=== PATIENT | male | born 1970 | race Caucasian/White ===

== ENCOUNTER 2021-11-27 09:30 | Day surgery (SDC) | payer BC, SELFPAY ==
[2021-11-27] VITALS (21 sets, daily range): BP systolic 133–164; BP diastolic 80–128; PULSE 57–91; RESP 14–20; TEMP 36.1–36.8; O2SAT 94–98; BMI 31.5
--- NOTE | 2021-11-27 10:09 | ED.ABDPAIN ---
HPI - Abdominal Pain General Time Seen by Provider: 10:09 Date Seen: 11/27/21 Chief Complaint: Abdominal Pain Stated Complaint: severe abdominal pain Time Seen by Provider: 11/27/21 10:09 Source: patient and RN notes reviewed History of Present Illness HPI narrative: Patient is a very pleasant 51-year-old male coming in with abdominal pain that radiates up into the right chest that awoke him at about 3:40 a.m. this morning. He has never had anything like this. He feels chilled but has not had fevers. [place] fine yesterday, went to bed without any symptoms. He had some coffee this morning and has not changed symptoms. He has not eaten in maybe endorses that his appetite maybe suppressed. He had a little diarrhea yesterday which she states would not be atypical for the heat in working outside that he experiences. He has never had any abdominal surgery. He states he has only had back surgery and a plate put in his ankle. As for family history, he is unaware if there is anybody with kidney stones but thinks there could be, is not aware of anybody with gallbladder issues or anybody that had their appendix out. No nausea or vomiting. No change in urination. No abnormal bowel pattern today. The chest symptoms have been there with the abdominal symptoms and he feels pain radiating up from the abdomen into the right chest area. He does note that his girlfriend was just in the hospital about 2 weeks ago for pneumonia. He does not endorse any cough seen, no respiratory symptoms. Did review with him that we certainly will consider that in our workup. We will look at cardiac possibilities as well. He has no prior cardiac history. He reports he quit smoking 1 year ago. When I asked patient if he drinks alcohol he does say yes. When asked how much he states enough. MD elicited complaint: abdominal pain Pertinent past history: none Onset (ago): hour(s) Pain Consistency: constant Location: epigastric and RUQ Severity: moderate Related Data Allergies Allergy/AdvReac Type Severity Reaction Status Date / Time clavulanic acid Allergy Verified 11/27/21 09:36 [From Augmentin] Review of Systems Status of ROS Reports: 10 or more systems reviewed and unremarkable except as noted in History and below PFSH PFSH Social History Smoking Status: Never smoker How often do you have a drink containing alcohol: never How often do you have six or more drinks on one occasion: Never AUDIT-C Alcohol total score: 0 Non-prescribed substance use: denies use Exam Const: Vital Signs, click to edit/add: Vital Signs - 24 hr 11/27/21 09:36 11/27/21 09:54 11/27/21 11:31 Temperature 98.2 F 97 F L Pulse Rate [Pulse Oximeter] 91 63 57 L Respiratory Rate 20 18 Blood Pressure [Le ft Upper Arm] 160/92 H 163/102 H Pulse Oximetry 97 97 97 Oxygen Delivery Me thod Room Air Room Air Room Air 11/27/21 13:15 11/27/21 13:30 11/27/21 14:00 Temperature Pulse Rate [Pulse Oximeter] 70 79 67 Respiratory Rate Blood Pressure [Le ft Upper Arm] 157/93 H 164/94 H 159/109 H Pulse Oximetry 96 96 95 Oxygen Delivery Me thod Room Air Room Air Room Air 11/27/21 14:15 11/27/21 14:30 11/27/21 15:00 Temperature Pulse Rate [Pulse Oximeter] 71 65 Respiratory Rate Blood Pressure [Le ft Upper Arm] 156/93 H 148/101 H 164/128 H Pulse Oximetry 95 95 Oxygen Delivery Me thod Room Air Room Air 11/27/21 15:25 Temperature Pulse Rate [Pulse Oximeter] 66 Respiratory Rate Blood Pressure [Le ft Upper Arm] 155/88 H Pulse Oximetry 96 Oxygen Delivery Me thod Room Air Documenting provider has reviewed patient's vital signs: yes Common normals: no apparent distress, oriented x3, no limitations, healthy appearing and alert General appearance: cooperative and comfortable Nutritional appearance: overweight HENMT: Common normals: normocephalic, head/scalp atraumatic, hearing grossly normal bilaterally, external ears normal, external nose normal, nasal mucous membranes and turbinates normal, moist oral mucous membranes, oropharynx normal and dentition normal Head and scalp: normocephalic and atraumatic Nose: external nose normal and nasal mucous membranes and turbinates normal External ear: external ears normal Eye: Common normals: PERRL, EOMs intact bilaterally, conjunctivae normal and no scleral icterus Conjunctiva: conjunctiva(e) normal Pupil: PERRL Neck & C-Spine: Common normals: full ROM, no lymphadenopathy, supple, no meningeal signs, no JVD and thyroid normal Thyroid: thyroid normal Chest: Common normals: inspection of chest normal and palpation of chest normal Resp: Common normals: normal respiratory effort, no retractions, no use of accessory muscles and clear to auscultation bilaterally Auscultation: clear to auscultation bilaterally Cardio: Common normals: no JVD, regular rate, regular rhythm, S1 normal heart sound, S2 normal heart sound, no gallops, no clicks, no murmurs and no rub Rate: regular rate Rhythm: regular rhythm Heart sounds: S1 normal and S2 normal GI: Common normals: Normal to inspection, nondistended, normoactive bowel sounds present, soft to palpation, no hepatosplenomegaly and no masses Palpation: soft and no hepatosplenomegaly Other: Tender mostly in the epigastric area but does generalized to mild right upper quadrant tenderness. Slight guarding in the epigastric area but not elsewhere. Certainly no rebound symptoms. : Common normals: no CVA tenderness Bladder/kidney exam: no CVA tenderness Back & Pelvis: Common normals: no CVA tenderness Extremity: Common normals: normal to inspection, full ROM, normal capillary refill, no joint enlargement, no clubbing, cyanosis or edema, no calf tenderness and no pedal edema Neuro: Common normals: oriented x3 Sensorium/orientation: alert Meningeal signs: no meningeal signs Course Course Hospital Course: We will place an IV. He states he does not need anything for pain at this time. Will proceed with a full complement of labs, portable chest x-ray, right upper quadrant abdominal ultrasound. He may need CT imaging as well. Primary in the differential for me is pancreatitis with her without gallbladder disease. There could be other intra-abdominal pathology and will consider this as our workup goes along. This could be atypical cardiac manifestations, atypical pulmonary disease presentation. Patient this time is hemodynamically stable and comfortable. He has no nausea. He will let me know if his symptoms are changing. He will be on cardiac monitoring and pulse oximetry at this time as we have not ruled out cardiac possibilities as causative etiology. However with that said, believe this is most likely intra-abdominal pathology. Reevaluation(s) Reevaluation #1: Reviewed the findings of appendicitis with patient. I will be contacting our general surgeon. Time: 13:00 Consultations Consultation #1: Have spoken with her surgeon Dr. Geronimo regarding the acute appendicitis. She will be coming to see him and hopefully he will be going to the OR in a relatively short time frame. Time: 13:05 Vital Signs Vital signs: Initial Vital Signs Temperature Source Temporal Artery Scan 11/27/21 09:36 Pulse Rate 91 11/27/21 09:36 Pulse Rhythm 11/27/21 09:36 Respiratory Rate 20 11/27/21 09:36 Blood Pressure 160/92 H 11/27/21 09:36 Blood Pressure Mean 114 11/27/21 09:36 Blood Pressure Position Supine 11/27/21 09:36 Pulse Oximetry 97 11/27/21 09:36 Oxygen Delivery Method 11/27/21 09:36 Vital Signs Pulse Rate 91 11/27/21 09:36 Respiratory Rate 20 11/27/21 09:36 Blood Pressure 160/92 H 11/27/21 09:36 Pulse Oximetry 97 11/27/21 09:36 Oxygen Delivery Method 11/27/21 09:36 Temperature 97 F L 11/27/21 11:31 Pulse Rate 66 11/27/21 15:25 Respiratory Rate 18 11/27/21 11:31 Blood Pressure 155/88 H 11/27/21 15:25 Pulse Oximetry 96 11/27/21 15:25 Oxygen Delivery Method 11/27/21 15:25 MDM - Abdominal Pain Lab Data Attestation: I reviewed the patient's lab results. Labs: Lab Results 11/27/21 11/27/21 11/27/21 Range/Units 10:16 10:20 10:20 WBC 10.21 (4.50-11.00) K/uL RBC 5.09 (4.30-5.90) m/uL Hgb 15.6 (13.5-17.5) gm/dL Hct 46.4 (37.0-53.0) % MCV 91 (80-100) fL MCH 31 (26-34) pg MCHC 34 (32-36) gm/dL RDW Coeff of Beatriz 12.6 (11.5-15.5) % Plt Count 208 (140-440) K/uL Neut % (Auto) 87.9 H (42.0-72.0) % Lymph % (Auto) 6.7 L (20-44) % [place] % (Auto) 5.0 (0.0-11.0) % Eos % (Auto) 0.1 (0.0-7.0) % Baso % (Auto) 0.2 (0.0-3.0) % Neut # (Auto) 9.00 H (1.7-7.0) K/uL Lymph # (Auto) 0.70 L (0.90-2.90) K/uL [place] # (Auto) 0.50 (0.00-0.90) K/UL Eos # (Auto) 0.01 (0.00-0.50) K/uL Baso # (Auto) 0.02 (0.00-0.30) K/uL Abs Immat Gran (auto) 0.01 (0.00-0.30) K/uL Sodium 136 (135-149) mmol/L Potassium 4.5 (3.6-5.1) mmol/L Chloride 102 (96-114) mmol/L Carbon Dioxide 29 (20-32) mmol/L BUN 14 (7-30) mg/dL Creatinine 0.9 (0.5-1.5) mg/dL Estimated Creat Clear 96.01 Estimated GFR 103 ml/min Glucose 125 H (60-115) mg/dL Lactate (0.5-1.9) mmol/L Calcium 9.1 (8.4-10.6) mg/dL Total Bilirubin 0.7 (0.1-1.5) mg/dL AST 25 (12-35) U/L ALT 25 (4-50) U/L Alkaline Phosphatase 91 (40-150) U/L Troponin I < 0.01 L (0.01-0.04) ng/mL C-Reactive Protein 0.6 (0.5-1.0) mg/dL Total Protein 7.4 (6.0-8.3) g/dL Albumin 4.4 (3.3-5.0) g/dL Lipase 49 (23-300) U/L Urine Color (Yellow) Urine Appearance (Clear) Urine pH (5.0-8.5) Ur Specific [place] (1.000-1.030) Urine Protein (Negative) Urine Glucose (UA) (Negative) Urine Ketones (Negative) Urine Blood (Negative) Urine Nitrite (Negative) Urine Bilirubin (Negative) Urine Urobilinogen (0.2-1.0) Ur Leukocyte Esterase (Negative) Urine RBC (0-2) Urine WBC (0-5) Ur Squamous Epith Cells (None-Few) Urine Bacteria (None) Ethyl Alcohol < 0.01 L (0.01-0.03) % SARS-CoV-2 (PCR) Negative SARS-CoV-2 (Negative) 11/27/21 11/27/21 Range/Units 10:20 11:41 WBC (4.50-11.00) K/uL RBC (4.30-5.90) m/uL Hgb (13.5-17.5) gm/dL Hct (37.0-53.0) % MCV (80-100) fL MCH (26-34) pg MCHC (32-36) gm/dL RDW Coeff of Beatriz (11.5-15.5) % Plt Count (140-440) K/uL Neut % (Auto) (42.0-72.0) % Lymph % (Auto) (20-44) % [place] % (Auto) (0.0-11.0) % Eos % (Auto) (0.0-7.0) % Baso % (Auto) (0.0-3.0) % Neut # (Auto) (1.7-7.0) K/uL Lymph # (Auto) (0.90-2.90) K/uL [place] # (Auto) (0.00-0.90) K/UL Eos # (Auto) (0.00-0.50) K/uL Baso # (Auto) (0.00-0.30) K/uL Abs Immat Gran (auto) (0.00-0.30) K/uL Sodium (135-149) mmol/L Potassium (3.6-5.1) mmol/L Chloride (96-114) mmol/L Carbon Dioxide (20-32) mmol/L BUN (7-30) mg/dL Creatinine (0.5-1.5) mg/dL Estimated Creat Clear Estimated GFR ml/min Glucose (60-115) mg/dL Lactate 0.8 (0.5-1.9) mmol/L Calcium (8.4-10.6) mg/dL Total Bilirubin (0.1-1.5) mg/dL AST (12-35) U/L ALT (4-50) U/L Alkaline Phosphatase (40-150) U/L Troponin I (0.01-0.04) ng/mL C-Reactive Protein (0.5-1.0) mg/dL Total Protein (6.0-8.3) g/dL Albumin (3.3-5.0) g/dL Lipase (23-300) U/L Urine Color Yellow (Yellow) Urine Appearance Clear (Clear) Urine pH 8.5 (5.0-8.5) Ur Specific [place] 1.020 (1.000-1.030) Urine Protein Negative (Negative) Urine Glucose (UA) Negative (Negative) Urine Ketones Negative (Negative) Urine Blood Negative (Negative) Urine Nitrite Negative (Negative) Urine Bilirubin Negative (Negative) Urine Urobilinogen 0.2 (0.2-1.0) Ur Leukocyte Esterase Negative (Negative) Urine RBC 0-2 (0-2) Urine WBC 0-2 (0-5) Ur Squamous Epith Cells Few (None-Few) Urine Bacteria None (None) Ethyl Alcohol (0.01-0.03) % SARS-CoV-2 (PCR) (Negative) Imaging Data US - abdomen: Attestation: I have reviewed the pertinent imaging results. Radiologist's impression: Patient: JEFFERSON MARQUEZ Facility:?[facility] Patient ID:?[id number] Site Patient ID:?[id number] Site :?[id number] Study:?US Abdomen RUQ-11/27/2021 11:15:10 AM Ordering Physician:Marilu Patterson Final Report: Indication: Right upper quadrant pain. Technique: Sonography of the abdomen was performed limited to the structures discussed below Comparison: There are no prior studies for comparison Findings: The liver is normal in size and configuration. No focal mass. No biliary ductal dilatation. No perihepatic fluid collections. The common duct measures 5 millimeters which is normal. The gallbladder shows no evidence of calculus or sludge. There is a sonographic Buchanan`s sign. There is no pericholecystic fluid. Wall thickness is mildly increased at 4 millimeters. Generally, greater than 3 millimeters is considered abnormal. The pancreas was poorly seen due to overlying bowel gas. Aorta was mildly dilated at 3 centimeters. The IVC appeared normal. The right kidney is normal in size measuring 12.1 x 6.3 x 7.5 centimeters. This contains a cyst measuring 4.7 x 3.5 x 4.4 centimeters. Impression: 1. There is a sonographic Buchanan sign and mild gallbladder wall thickening but no biliary ductal dilatation, stones, sludge or abnormal pericholecystic fluid collection. Therefore the findings do not meet ultrasound criteria for acute cholecystitis. 2. Right renal cyst. 3. Mildly dilated aorta at 3 centimeters Chest x-ray: Attestation: I have reviewed the pertinent imaging results. Radiologist's impression: Patient: JEFFERSON MARQUEZ Facility:?[facility] Patient ID:?[id number] Site Patient ID:?[id number] Site :?[id number] Study:?XRay Chest Portable 1 View-11/27/2021 10:53:50 AM Ordering Physician:Marilu Patterson Final Report: INDICATION: Chest discomfort COMPARISON: None TECHNIQUE: Single-view portable study November 27, 2021 at 10:43 a.m. FINDINGS: TUBES AND LINES: None. HEART AND MEDIASTINUM: The heart size is normal. The mediastinal contour appears normal for patient age. LUNGS AND PLEURAL SPACES: The lungs appear normal.The pleural spaces are unremarkable. OSSEOUS STRUCTURES: Age-appropriate appearance. No acute focal finding. IMPRESSION: No evidence of active pulmonary disease. Dictated by Amanuel Fernandez MD @ 11/27/2021 11:05:33 AM (Electronic Signature) CT scan - abdomen: Attestation: I have reviewed the pertinent imaging results. Radiologist's impression: [facility] Facility:?[facility] Patient ID:?[id number] Site Patient ID:?[id number]. Site :?[id number] Study:?CT Abdomen/Pelvis 100cc isovue 370-11/27/2021 12:35:55 PM Ordering Physician:Marilu Patterson Final Report: INDICATION: EPIGASTRIC AND RUQ PAIN TECHNIQUE: CT abdomen and pelvis with 100CC ISOVUE 370 IV contrast. COMPARISON: None. FINDINGS: The liver is normal in size, shape and attenuation. Gallbladder and biliary tree are normal. The spleen, adrenal glands and pancreas are within normal limits. Right midpole renal cyst measuring 5.5 cm. Punctate right intrarenal nephrolithiasis. No hydronephrosis. No bladder wall thickening. No evidence of bowel obstruction. The appendix is enlarged measuring 1.2 cm with some adjacent stranding. The appendix is predominantly fluid-filled with tiny foci of air within the mid lumen. No evidence of periappendiceal fluid collection to suggest abscess. No significant free fluid and no free air. Mild atherosclerosis of the abdominal aorta which is of normal caliber. Pelvic organs are unremarkable. The lower chest is unremarkable. Mild degenerative changes of the lower spine. IMPRESSION: Findings compatible with acute appendicitis. No evidence of perforation or periappendiceal fluid collection. Please note that all CT scans at this facility use dose modulation, iterative reconstruction, and/or weight-based dosing when appropriate to reduce radiation dose to as low as reasonably achievable. Dictated by Jose R Gusman MD @ 11/27/2021 12:55:11 PM (Electronic Signature) ECG Data Attestation: I personally reviewed and interpreted this ECG as follows: (Sinus bradycardia, 59 beats per minute, right bundle branch block.) ECG interpretation date: 11/27/21 ECG interpretation time: 10:27 Prior ECG tracings: not available for review Critical Care Time Critical Care Time Critical Care Time: No Discharge Plan Discharge Clinical Impression: Acute appendicitis Patient Disposition: Admitted As Inpatient Condition: Stable
--- NOTE | 2021-11-27 10:15 | CRLHL7_ITS ---
For Patients: As a result of the Century Cures Act, medical imaging exams and procedure reports are released immediately into your electronic medical record. You may view this report before your referring provider. If you have questions, please contact your health care provider. Indication: Right upper quadrant pain. Technique: Sonography of the abdomen was performed limited to the structures discussed below Comparison: There are no prior studies for comparison Findings: The liver is normal in size and configuration. No focal mass. No biliary ductal dilatation. No perihepatic fluid collections. The common duct measures 5 millimeters which is normal. The gallbladder shows no evidence of calculus or sludge. There is a sonographic Buchanan`s sign. There is no pericholecystic fluid. Wall thickness is mildly increased at 4 millimeters. Generally, greater than 3 millimeters is considered abnormal. The pancreas was poorly seen due to overlying bowel gas. Aorta was mildly dilated at 3 centimeters. The IVC appeared normal. The right kidney is normal in size measuring 12.1 x 6.3 x 7.5 centimeters. This contains a cyst measuring 4.7 x 3.5 x 4.4 centimeters. Impression: 1. There is a sonographic Buchanan sign and mild gallbladder wall thickening but no biliary ductal dilatation, stones, sludge or abnormal pericholecystic fluid collection. Therefore the findings do not meet ultrasound criteria for acute cholecystitis. 2. Right renal cyst. 3. Mildly dilated aorta at 3 centimeters Dictated by Amanuel Fernandez MD @ 11/27/2021 11:33:09 AM (Electronically Signed)
--- NOTE | 2021-11-27 10:17 | CRLHL7_ITS ---
For Patients: As a result of the Century Cures Act, medical imaging exams and procedure reports are released immediately into your electronic medical record. You may view this report before your referring provider. If you have questions, please contact your health care provider. INDICATION: Chest discomfort COMPARISON: None TECHNIQUE: Single-view portable study November 27, 2021 at 10:43 a.m. FINDINGS: TUBES AND LINES: None. HEART AND MEDIASTINUM: The heart size is normal. The mediastinal contour appears normal for patient age. LUNGS AND PLEURAL SPACES: The lungs appear normal.The pleural spaces are unremarkable. OSSEOUS STRUCTURES: Age-appropriate appearance. No acute focal finding. IMPRESSION: No evidence of active pulmonary disease. Dictated by Amanuel Fernandez MD @ 11/27/2021 11:05:33 AM (Electronically Signed)
[2021-11-27 10:26] LABS: Lactate* 0.8 mmol/L (0.5-1.9)
--- NOTE | 2021-11-27 10:27 | ED.NURSE ---
Patient to radiology for scans.
[2021-11-27 10:29] LABS: Basophils Absolute Auto 0.02 K/uL (0.00-0.30); Basophils Percent Auto 0.2 % (0.0-3.0); Eosinophils Absolute Auto 0.01 K/uL (0.00-0.50); Eosinophils Percent Auto 0.1 % (0.0-7.0); Hematocrit 46.4 % (37.0-53.0); Hemoglobin* 15.6 gm/dL (13.5-17.5); Immature Granulocytes Abs Auto 0.01 K/uL (0.00-0.30); Lymphocytes Percent Auto 6.7 % (20-44); Mean Corpuscular HGB Conc 34 gm/dL (32-36); Mean Corpuscular Hemoglobin 31 pg (26-34); Mean Corpuscular Volume 91 fL (80-100); Neutrophils Percent Auto 87.9 % (42.0-72.0); Platelet Count* 208 K/uL (140-440); RDW Coefficient of Variation % 12.6 % (11.5-15.5); Red Blood Count 5.09 m/uL (4.30-5.90); White Blood Count* 10.21 K/uL (4.50-11.00)
[2021-11-27 10:32] LABS: Slide Review Reflex No
[2021-11-27 10:42] LABS: Albumin* 4.4 g/dL (3.3-5.0); Chloride* 102 mmol/L (96-114); Sodium* 136 mmol/L (135-149)
[2021-11-27 10:43] LABS: Potassium* 4.5 mmol/L (3.6-5.1)
[2021-11-27 10:45] LABS: Alkaline Phosphatase* 91 U/L (40-150); Aspartate Amino Transferase* 25 U/L (12-35); Bilirubin Total* 0.7 mg/dL (0.1-1.5); Blood Urea Nitrogen* 14 mg/dL (7-30); Carbon Dioxide* 29 mmol/L (20-32); Creatinine* 0.9 mg/dL (0.5-1.5); Est. Creatinine Clearance* 96.01; Estimated Glomerular Filt Rate 103 ml/min; Lipase* 49 U/L (23-300); Total Protein* 7.4 g/dL (6.0-8.3)
[2021-11-27 10:46] LABS: Alanine Aminotransferase* 25 U/L (4-50); Calcium* 9.1 mg/dL (8.4-10.6); Glucose* 125 mg/dL (60-115)
[2021-11-27 10:48] LABS: C Reactive Protein* 0.6 mg/dL (0.5-1.0); Ethanol* < 0.01 % (0.01-0.03)
--- NOTE | 2021-11-27 10:49 | ED.NURSE ---
Patient to radiology for ultrasound, ambulatory.
[2021-11-27 10:59] LABS: Troponin I* < 0.01 ng/mL (0.01-0.04)
--- NOTE | 2021-11-27 11:32 | ED.NURSE ---
Patient resting on cot, pain remains 8/10. Warm blankets provided on request. Temp 97F temporal.
--- NOTE | 2021-11-27 11:43 | CRLHL7_ITS ---
For Patients: As a result of the Century Cures Act, medical imaging exams and procedure reports are released immediately into your electronic medical record. You may view this report before your referring provider. If you have questions, please contact your health care provider. INDICATION: EPIGASTRIC AND RUQ PAIN TECHNIQUE: CT abdomen and pelvis with 100CC ISOVUE 370 IV contrast. COMPARISON: None. FINDINGS: The liver is normal in size, shape and attenuation. Gallbladder and biliary tree are normal. The spleen, adrenal glands and pancreas are within normal limits. Right midpole renal cyst measuring 5.5 cm. Punctate right intrarenal nephrolithiasis. No hydronephrosis. No bladder wall thickening. No evidence of bowel obstruction. The appendix is enlarged measuring 1.2 cm with some adjacent stranding. The appendix is predominantly fluid-filled with tiny foci of air within the mid lumen. No evidence of periappendiceal fluid collection to suggest abscess. No significant free fluid and no free air. Mild atherosclerosis of the abdominal aorta which is of normal caliber. Pelvic organs are unremarkable. The lower chest is unremarkable. Mild degenerative changes of the lower spine. IMPRESSION: Findings compatible with acute appendicitis. No evidence of perforation or periappendiceal fluid collection. Please note that all CT scans at this facility use dose modulation, iterative reconstruction, and/or weight-based dosing when appropriate to reduce radiation dose to as low as reasonably achievable. Dictated by Jose R Gusman MD @ 11/27/2021 12:55:11 PM (Electronically Signed)
[2021-11-27 11:52] LABS: SARS PCR* Negative SARS-CoV-2 (Negative)
[2021-11-27 12:36] LABS: Appearance Urine Clear (Clear); Bilirubin Urine Negative (Negative); Blood Urine Negative (Negative); Color Urine Yellow (Yellow); Glucose Urine Negative (Negative); Ketones Urine Negative (Negative); Leukocyte Esterase Urine Negative (Negative); Nitrite Urine Negative (Negative); Protein Urine Negative (Negative); Urobilinogen Urine 0.2 (0.2-1.0); pH Urine 8.5 (5.0-8.5)
[2021-11-27] MEDS: 0.9 % SODIUM CHLORIDE 500 ML 500 ML IV (13:10)
[2021-11-27] MEDS: ONDANSETRON 2 MG/ML inj 4 MG IVP (13:44)
[2021-11-27] MEDS: MORPHINE 4 MG/ML INJ IVP (13:44)
[2021-11-27 14:18] LABS: RBC Urine 0-2 (0-2); Squamous Epithelial Cell Urine Few (None-Few); WBC Urine 0-2 (0-5)
--- NOTE | 2021-11-27 14:18 | PM.GSCN ---
History of Present Illness Consult details Consult date: 11/27/21 Reason for consult: abdominal pain Narrative: Patient presents for evaluation of right-sided abdominal pain. He states that the pain started early this morning. He describes the pain as being sharp in intensity and focused on the right side. He has never had pain like this before. Continued to worsen throughout the day, prompting him to come in for evaluation. He denies any fever or chills. Does report a decrease in appetite, only had coffee early this morning. No nausea or vomiting. Denies any diarrhea or constipation. He has never had surgery in his abdomen before. He does report when he was 10 he had appendicitis, but he states he was only in the hospital for this and never had an operation. Review of Systems Status of ROS: Reports: 10 or more systems reviewed and unremarkable except as noted in History and below PFSH PFS Social History Smoking Status: Never smoker How often do you have a drink containing alcohol: never How often do you have six or more drinks on one occasion: Never AUDIT-C Alcohol total score: 0 Non-prescribed substance use: denies use Meds Home Medications and Allergies Allergies Allergy/AdvReac Type Severity Reaction Status Date / Time clavulanic acid Allergy Verified 11/27/21 09:36 [From Augmentin] Exam Narrative: Exam Narrative: General: Alert and oriented, no acute distress. Sitting comfortably in bed. Respiratory: Equal breath rise bilaterally, maintained on room air CV: Regular rhythm and rate, well perfused Abdomen: Soft, nondistended, tender to palpation right lower quadrant with some mild guarding and no rebound. Extremities: No evidence of bilateral edema Const: Vital Signs, click to edit/add: Vital Signs - 24 hr 11/27/21 09:36 11/27/21 09:54 11/27/21 11:31 Temperature 98.2 F 97 F L Pulse Rate [Pulse Oximeter] 91 63 57 L Respiratory Rate 20 18 Blood Pressure [Le ft Upper Arm] 160/92 H 163/102 H Pulse Oximetry 97 97 97 Oxygen Delivery Me thod Room Air Room Air Room Air 11/27/21 13:15 Temperature Pulse Rate [Pulse Oximeter] 70 Respiratory Rate Blood Pressure [Le ft Upper Arm] 157/93 H Pulse Oximetry 96 Oxygen Delivery Me thod Room Air Results Labs Labs: Abnormal lab results 11/27/21 11/27/21 Range/Units 10:20 10:20 Neut % (Auto) 87.9 H (42.0-72.0) % Lymph % (Auto) 6.7 L (20-44) % Neut # (Auto) 9.00 H (1.7-7.0) K/uL Lymph # (Auto) 0.70 L (0.90-2.90) K/uL Glucose 125 H (60-115) mg/dL Troponin I < 0.01 L (0.01-0.04) ng/mL Ethyl Alcohol < 0.01 L (0.01-0.03) % Diabetes panel 11/27/21 Range/Units 10:20 Sodium 136 (135-149) mmol/L Potassium 4.5 (3.6-5.1) mmol/L Chloride 102 (96-114) mmol/L Carbon Dioxide 29 (20-32) mmol/L BUN 14 (7-30) mg/dL Creatinine 0.9 (0.5-1.5) mg/dL Glucose 125 H (60-115) mg/dL Calcium 9.1 (8.4-10.6) mg/dL AST 25 (12-35) U/L ALT 25 (4-50) U/L Alkaline Phosphatase 91 (40-150) U/L Total Protein 7.4 (6.0-8.3) g/dL Albumin 4.4 (3.3-5.0) g/dL Calcium panel 11/27/21 Range/Units 10:20 Calcium 9.1 (8.4-10.6) mg/dL Albumin 4.4 (3.3-5.0) g/dL Pituitary panel 11/27/21 Range/Units 10:20 Sodium 136 (135-149) mmol/L Potassium 4.5 (3.6-5.1) mmol/L Chloride 102 (96-114) mmol/L Carbon Dioxide 29 (20-32) mmol/L BUN 14 (7-30) mg/dL Creatinine 0.9 (0.5-1.5) mg/dL Glucose 125 H (60-115) mg/dL Calcium 9.1 (8.4-10.6) mg/dL Adrenal panel 11/27/21 Range/Units 10:20 Sodium 136 (135-149) mmol/L Potassium 4.5 (3.6-5.1) mmol/L Chloride 102 (96-114) mmol/L Carbon Dioxide 29 (20-32) mmol/L BUN 14 (7-30) mg/dL Creatinine 0.9 (0.5-1.5) mg/dL Glucose 125 H (60-115) mg/dL Calcium 9.1 (8.4-10.6) mg/dL Total Bilirubin 0.7 (0.1-1.5) mg/dL AST 25 (12-35) U/L ALT 25 (4-50) U/L Alkaline Phosphatase 91 (40-150) U/L Total Protein 7.4 (6.0-8.3) g/dL Albumin 4.4 (3.3-5.0) g/dL All other labs normal. Imaging Abdomen CT scan report/results: report reviewed and image reviewed Assessment and Plan Assessment and plan (1) Acute appendicitis: Status: Acute Plan The patient is a healthy 51-year-old male who presented with a history, exam and imaging findings consistent with acute appendicitis. I discussed the treatment options with the patient including non-surgical and surgical options. I recommended laparoscopic appendectomy. The risks of surgery were reviewed with the patient including the risks of bleeding, post-operative wound or intra-abdominal infection, injury to abdominal structures and possible conversion to an open operation. We also discussed anesthetic complications including MN, stroke, respiratory failure and blood clots. The patient voiced an understanding of our conversation, had the opportunity to ask questions, agreed to accept the risks of surgery and asked that we proceed with surgery. -will take to the operating room for laparoscopic appendectomy -preop antibiotics -anticipate recovery and same-day surgery
[2021-11-27] MEDS: KETOROLAC 15 MG/ML inj IVP ×2 (14:54→19:11)
--- NOTE | 2021-11-27 15:31 | ED.NURSE ---
Pt taken to surgery.
[2021-11-27] MEDS: PIPERACILLIN/TAZOBACTAM 3.375 GM in 0.9 % SODIUM CHLORIDE Mini-bag 100 ML IVPB (15:35)
[2021-11-27] MEDS: LACTATED RINGERS 1000 ML 1,000 ML 125 ML IV (15:35)
[2021-11-27] MEDS: BUPIVACAINE 0.25% 30 ML INJECTION (16:23)
--- NOTE | 2021-11-27 16:29 | PM.GSPRC ---
Operative Note Date of procedure: 11/27/21 Type of Procedure: Laparoscopic appendectomy Procedure Description: After discussing the risks and benefits of the procedure, the patient signed informed consent.? The operative site was marked and the patient was brought to the operating room and placed on the operating table in supine position.? Care was taken to pad the patient's pressure points.?? The patient was then [intubated/given sedation] by anesthesia.?? The operative site was then prepped and draped in the usual sterile fashion.? A time-out was then performed. Entrance to the abdomen was obtained via a 5 mm optical trocar in the left upper quadrant. The abdomen was insufflated and briefly surveyed for any signs of injury. There were none. A 12 mm port was placed lateral to the umbilicus as well as a 5 mm port in the left lower quadrant under direct vision. The patient was then placed in Trendelenburg position with the right side up. The small bowel was gently moved out of the way and the appendix was in view. A small amount of dissection was necessary to free the appendix from the surrounding pelvic attachments. This was grasped and pulled into view. A mesenteric window was created between the base of the appendix and the mesoappendix. A 45 mm Endo-MONIKA purple load stapler was then used to transect the appendix at its base. A 45 mm vascular load stapler was then used to take the mesoappendix. The staple lines were inspected for bleeding. There was none. The appendix was then removed from the abdomen using an Endo-Catch bag. The specimen was sent to pathology. The 12 mm port site fascia was closed with 0 Vicryl. The skin was then closed with absorbable subcuticular suture. Sterile dressings were then applied. Instrument sponge and needle counts were correct at the end of the case. The patient was then woken and transported to the PACU in stable condition. Findings: Appendicitis, no evidence of perforation. Anesthesia: GETA Surgeon: Lou Geronimo MD Estimated blood loss (mL): 5 Condition: stable Disposition: PACU
--- NOTE | 2021-11-27 16:34 | W.ANESCHARGE ---
Anesthesia Charges Start Date/Time Anesthesia Start Date: 11/27/21 Anesthesia Start Time: 15:33 Stop Date/Time Anesthesia Stop Date: 11/27/21 Anesthesia Stop Time: 16:32 Summary Emergency: Yes
[2021-11-27] MEDS: OXYCODONE 5 MG TABLET PO (19:12)
--- NOTE | 2021-11-27 19:49 | PC.NURSE ---
Pt arrived to floor @1709 with significant other attentive at bedside. Pt repositioned, refused need for pain medication. Offered and tolerated ice chips and water. Abdomen punch sites clean and closed with glue. Up to bathroom to void without complication. Educated on splinting stomach to reduce post surgical pain. Tolerated dinner without N/V. Medications per eMAR given before discharge in anticipation of drive home. Pt left via w/c to return home @1927.
== END 2021-11-27 19:30 | disposition home or self-care (01) ==
LOC: ED 13:36 → SS 15:26
PROVIDERS: Emergency Provider Family Medicine; Visit Provider Surgery
PROC: 0DTJ4ZZ Resection of Appendix, Percutaneous Endoscopic Approach (ICD-10-PCS; CPT 44970; principal; 2021-11-27 15:15)
DX: K35.80 Unspecified acute appendicitis (principal)
CPT/HCPCS: 44970; 00840; 36415; 71045; 74177; 76705; 80053; 81001; 82077; 83605; 83690; 84484; 85025; 86140; 87635; 88304; 93005; 99140; 99284; 99285; A9270; J0330; J1885; J2250; J2270; J2405; J2543; J2704; J2710; J3010; J3490; J7120; Q9967